=== PATIENT | female | born 1985 | race Two or more races ===

== ENCOUNTER → 2017-09-16 | Outpatient (CLI) | payer BC ==
[2017-09-16 13:09] LABS: CH 28.4; CHCM 33.9; HCT 38.8 % (34.0-46.0); HDW 2.41; HGB 13.1 gm/dL (11.4-16.0); MCH 28.5 pg (25.0-35.0); MCHC 33.9 g/dL (31.0-37.0); MCV 84.1 fL (80.0-100.0); Mean Platelet Volume 7.7; RBC 4.61 m/uL (3.80-5.40); RDW 13.7 % (11.5-15.5)
[2017-09-16 13:30] LABS: Glucose 92 mg/dL (74-99); Non-African American GFR(MDRD) >60 (>60 ml/min/1.73 sqM)
--- NOTE | 2017-09-16 14:03 | US ---
EXAMINATION TYPE: US OB <= 14 wk fetus DATE OF EXAM: 09/16/2017 COMPARISON: NONE CLINICAL HISTORY: Z36 CONFIRM DATES. Confirm Dates. Positive beta-hCG test. EXAM PERFORMED: Transabdominal (TA) EXAM MEASUREMENTS: GESTATIONAL AGE / DATING Physician Established: (9 weeks/3 days) EDC: 04/18/2018 Dates by LMP: (9 weeks/3 days) EDC: 04/18/2018 Dates by First Scan: No prior Dates by Current Scan for: (9 weeks/3 days) EDC: 04/18/2018 MATERNAL ANATOMY Uterus: 12.6 x 6.9 x 8.9 cm Right Ovary: 2.3 x 2.0 x 2.1 cm Left Ovary: 3.0 x 1.9 x 3.1 Post CDS / Adnexa: wnl Presence of free fluid: No Presence of corpus luteal cyst: Left Ovary= 2.0 x 1.8 x 1.8 cm Presence of subchorionic bleed: Right= 2.4 x 0.9 x 1.5 cm, Left= 2.4 x 1.0 x 1.0 cm GESTATION / SURVEY CRL: 2.6 cm (9 weeks/3 days) MSD: wnl Yolk Sac (normal less than 6mm): 4mm Heart Rate: 168 bpm Rhythm: Normal IUP: Viable IUP Date of LMP: 07/12/2017 Single, viable IUP/ Small sub-chorionic bleeds, otherwise no other abnormality seen Single live intrauterine gestation is confirmed as gestational sac, yolk sac, and pole are iden tified. No free fluid is seen in pelvic cul-de-sac. Along right aspect of gestational sac superiorly there is 2.4 x 0.9 x 1.5 cm small curvilinear fluid collection or subchorionic hemorrhage. There is s lightly larger 2.4 x 1.0 x 1.0 cm oval fluid collection or small to moderate-sized subchorionic hemor rhage along left inferior aspect towards end of study marked by technologist. Both ovaries are present. No suspicious extraovarian adnexal masses are seen. Within left ovary there is 2.0 cm hypervascular hypoechoic lesion felt to reflect corpus luteal cyst. IMPRESSION: Single live intrauterine gestation is confirmed, mean crown-rump length is 2.6 cm corresponding to 9 week 3 day old fetus.
[2017-09-16 19:20] LABS: Treponemal Ab Non-Reactive (Non-Reactive)
== END | disposition home or self-care (01) ==
LOC: RADUSWWP 12:23
PROVIDERS: ATTEND Obstetrics & Gynecology
DX: Z34.01 Encounter for supervision of normal first pregnancy, first trimester (principal); Z3A.09 9 weeks gestation of pregnancy
CPT/HCPCS: 36415; 76801; 82565; 82947; 85027; 86762; 86780; 86850; 86900; 86901; 87340

== ENCOUNTER 2018-04-12 13:03 | Inpatient (IN) | payer BC ==
[2018-04-12] MEDS ORDERED: OXYTOCIN 10 UNIT/ML 1 ML VIAL IM PRN (13:20)
[2018-04-12] MEDS ORDERED: METHYLERGONOVINE 0.2 MG/ML 1 ML AMP IM PRN (13:20)
[2018-04-12] MEDS ORDERED: TERBUTALINE 1 MG/ML VIAL SQ PRN (13:20)
[2018-04-12] MEDS ORDERED: LIDOCAINE 1% (PF) 10 MG/ML (30 ML SDV) SQ PRN (13:20)
[2018-04-12] MEDS ORDERED: CARBOPROST TROMETHAMINE 250 MCG/ML 1 ML AMP IM PRN (13:20)
[2018-04-12] MEDS ORDERED: OXYTOCIN 20 UNITS/1000 ML NS 1,000 ML IV SCH ×3 (13:30→23:00)
[2018-04-12] MEDS: LACTATED RINGERS 1,000 ML IV SCH ×2 (13:49→21:05)
[2018-04-12 14:06] LABS: Basophils % (A) 0 %; Eosinophils % (A) 0 %; HCT 39.2 % (34.0-46.0); HGB 13.4 gm/dL (11.4-16.0); Lymphocytes % (A) 19 %; MCH 29.4 pg (25.0-35.0); MCV 86.3 fL (80.0-100.0); Mean Platelet Volume 9.5; Monocytes # (A) 0.5 k/uL (0-1.0); Monocytes % (A) 4 %; Neutrophils # (A) 7.9 k/uL (1.3-7.7); Neutrophils % (A) 74 %; Platelet Count 205 k/uL (150-450); RBC 4.55 m/uL (3.80-5.40); RDW 13.7 % (11.5-15.5); WBC 10.6 k/uL (3.8-10.6)
[2018-04-12 14:45] VITALS: BMI 28.7
[2018-04-12] MEDS ORDERED: BUTORPHANOL 1 MG/ML 1 ML VIAL IV PRN (16:00)
--- NOTE | 2018-04-12 17:14 | P.HPOB ---
History of Present Illness H&P Date: 04/12/18 Chief Complaint: Leaking of fluid This patient is a pleasant 32-year-old 1 para 0 female estimated date of confinement 04/18/2018 estimated gestational age 39 and one sevenths weeks who presents to labor and delivery with complaints of leaking of fluid since 11: 00 this morning. Patient's care has been uncomplicated. Review of Systems Gastrointestinal: Reports heartburn Genitourinary: Reports Menstruation: Reports amenorrhea Past Medical History Past Medical History: No Reported History Additional Past Medical History / Comment(s): She had excision of a benign lip lesion. History of Any Multi-Drug Resistant Organisms: None Reported Past Surgical History: No Surgical Hx Reported Past Anesthesia/Blood Transfusion Reactions: No Reported Reaction Past Psychological History: No Psychological Hx Reported Smoking Status: Never smoker Past Alcohol Use History: None Reported Past Drug Use History: None Reported - Past Family History Father Family Medical History: No Reported History Medications and Allergies Home Medications Medication Instructions Recorded Confirmed Type Pnv,Calcium 72/Iron/Folic Acid 1 tab PO DAILY 04/12/18 04/12/18 History [ Plus Tablet] Allergies Allergy/AdvReac Type Severity Reaction Status Date / Time No Known Allergies Allergy Verified 04/12/18 13:19 Exam - Vital Signs Vital signs: Vital Signs Temp Pulse Resp BP Pulse Ox 04/12/18 13:22 97.4 F L 76 16 126/77 97 Intake and Output 04/12/18 04/12/18 04/12/18 06:59 14:59 22:59 Other: # Voids 1 Weight 80.739 kg - OBG Physical Exam Abdomen: bowel sounds normal, no diffuse tenderness, no bruit present, no guarding noted, no hepatomegaly, no splenomegaly, no mass Vulva: both: normal Vagina: normal moisture, no discharge Cervix: Cervix is 3-4 cm dilated 80% effaced and -1 station. Gross rupture membranes. Uterus: enlarged (Fundal height is 37 cm.) Results blood work shows she is A positive, rubella immune, RPR nonreactive, hepatitis B negative, group B strep was negative, Glucola was normal, ultrasounds have been normal. Result Diagrams: 04/12/18 13:50 Abnormal Lab Results - Last 24 Hours (Table) 04/12/18 Range/Units 13:50 Neutrophils # 7.9 H (1.3-7.7) k/uL Assessment and Plan Assessment: This is a pleasant 32-year-old 1 para 0 female estimated gestational age 39 and one sevenths weeks gestation who is admitted to labor and delivery with spontaneous rupture membranes. Patient's having rare contractions therefore plan is augmentation with Pitocin and anticipate vaginal delivery. (1) Third trimester Current Visit: Yes Status: Acute Code(s): Z34.93 - ENCNTR FOR SUPRVSN OF NORMAL PREG, UNSP, THIRD TRIMESTER SNOMED Code(s): 15043676 (2) Spontaneous rupture of amniotic membranes Current Visit: Yes Status: Acute Code(s): XNM5796 - SNOMED Code(s): 041130629
[2018-04-12] MEDS ORDERED: diphenhydrAMINE 25 MG CAP PO PRN ×2 (22:47→22:51)
[2018-04-12] MEDS ORDERED: ZOLPIDEM 5 MG TAB PO PRN ×2 (22:47→22:51)
[2018-04-12] MEDS ORDERED: HYDROCORTISONE 2.5% RECTAL CREAM 30 GM TUBE RECTAL PRN ×2 (22:47→22:51)
[2018-04-12] MEDS ORDERED: diphenhydrAMINE 50 MG CAP PO PRN (22:47)
[2018-04-12] MEDS ORDERED: diphenhydrAMINE 50 MG/ML 1 ML VIAL IVP PRN ×3 (22:47→22:51)
[2018-04-12] MEDS ORDERED: SIMETHICONE 80 MG CHEWABLE PO PRN ×2 (22:47→22:51)
[2018-04-12] MEDS ORDERED: LANOLIN CREAM 5 GM TUBE TOPICAL PRN ×2 (22:47→22:51)
[2018-04-12] MEDS ORDERED: ACETAMINOPHEN TAB 325 MG TAB PO PRN (22:47)
[2018-04-12] MEDS ORDERED: BENZOCAINE/MENTHOL SPRAY 1 GM/SPRAY AEROSOL TOPICAL PRN ×2 (22:47→22:51)
[2018-04-12] MEDS ORDERED: WITCH HAZEL 1 EACH MED..PAD TOPICAL PRN ×2 (22:47→22:51)
[2018-04-12] MEDS ORDERED: IBUPROFEN 600 MG TAB PO PRN (22:47)
[2018-04-12] MEDS ORDERED: BISACODYL 10 MG SUPP RECTAL PRN (22:51)
--- NOTE | 2018-04-12 22:52 | P.PROBDLV ---
Vaginal Delivery Note - . Vaginal Delivery Note: 32-year-old presented at 39 weeks and 1 day with spontaneous rupture membranes at 11 AM. Her cervix was 1 cm dilated, 80% effaced, and -1 station. She is not lizzie. heart tones 130-135 with moderate variability and reactive. Pitocin augmentation was started. Soon started lizzie every 2-3 minutes. When she was very uncomfortable and 6 cm dilated she did get one dose of Stadol. Soon thereafter she was completely dilated at 2109. She pushed, and delivered a viable female over intact perineum at 2213. Head delivered OA, nuchal cord 1 easily reduced, and anterior shoulder which was the right shoulder delivered gentle downward guidance followed by posterior shoulder and rest of body. Nose and mouth bulb suctioned, cord clamped and cut , infant placed on mother's abdomen. Apgars 9, 9, weight 7 lbs. 2 oz. Placenta delivered spontaneously, intact with three-vessel cord at 2215. Vagina , cervix, and perineum were inspected. A right sulcal laceration and a second- degree perineal laceration were repaired with 2-0 and 3-0 Vicryl. Estimated blood loss 300 mL. Mother and baby in stable condition.
[2018-04-12] MEDS: SENNOSIDES-DOCUSATE SODIUM 1 EACH TAB PO SCH (23:54)
[2018-04-12] MEDS: IBUPROFEN 600 MG TAB PO PRN (23:54)
--- NOTE | 2018-04-13 06:16 | P.PNOBGVD ---
Subjective - Subjective Patient reports: Reports appetite normal, Reports voiding normally, Reports pain well controlled, Reports ambulating normally : doing well Objective - Latest Vital Signs Latest vital signs: Vital Signs Temp Pulse Resp BP Pulse Ox 04/13/18 04:30 98.8 F 102 H 16 111/70 98 04/13/18 00:30 98 F 100 16 99/57 97 04/13/18 00:13 102 H 100/57 04/13/18 00:02 121 H 91/50 04/13/18 00:00 121 H 16 89/58 04/12/18 23:30 115 H 16 106/67 04/12/18 23:15 122 H 16 106/52 04/12/18 23:00 114 H 16 111/68 04/12/18 22:45 104 H 16 109/68 04/12/18 22:30 97.8 F 100 16 112/67 04/12/18 13:22 97.4 F L 76 16 126/77 97 Intake and Output 04/12/18 04/12/18 04/13/18 14:59 22:59 06:59 Intake Total 1000 1200 Output Total 300 Balance 700 1200 Intake: Intake, IV Titration 1000 1200 Amount Lactated Ringers 1,000 ml 1000 1000 @ 125 mls/hr IV .Q8H JORGE Rx#:[id number] Oxytocin 20 Units/1000 ml 200 Ns 1,000 ml @ Per Protocol IV .Q0M JORGE Rx#: [id number] Output: Estimated Blood Loss 300 Other: # Voids 1 1 Weight 80.739 kg - Exam Lungs: bilateral: normal Chest: Normal S1, Normal S2 Extremities: Present: normal Abdomen: Present: normal appearance, soft Uterus: Present: normal, firm - Labs Labs: Abnormal Lab Results - Last 24 Hours (Table) 04/12/18 Range/Units 13:50 Neutrophils # 7.9 H (1.3-7.7) k/uL Assessment and Plan Assessment: Post day #1. Resting without complaints. Vital signs are stable she is afebrile. She did have some bleeding after delivery and therefore I am going to check a CBC today. Currently she is bleeding significantly her uterus is firm. Vital signs are stable she is some mild tachycardia. Plan today is to continue routine care. (1) Third trimester Current Visit: Yes Status: Acute Code(s): Z34.93 - ENCNTR FOR SUPRVSN OF NORMAL PREG, UNSP, THIRD TRIMESTER SNOMED Code(s): 44648559 (2) Spontaneous rupture of amniotic membranes Current Visit: Yes Status: Acute Code(s): KNF2842 - SNOMED Code(s): 757458787
[2018-04-13 06:42] LABS: Basophils % (A) 0 %; Eosinophils % (A) 0 %; HCT 27.3 % (34.0-46.0); Lymphocytes # (A) 1.3 k/uL (1.0-4.8); Lymphocytes % (A) 7 %; MCH 28.7 pg (25.0-35.0); MCHC 32.8 g/dL (31.0-37.0); MCV 87.3 fL (80.0-100.0); Mean Platelet Volume 11.4; Monocytes # (A) 0.6 k/uL (0-1.0); Monocytes % (A) 3 %; Neutrophils # (A) 17.1 k/uL (1.3-7.7); Neutrophils % (A) 89 %; Platelet Count 200 k/uL (150-450); RBC 3.13 m/uL (3.80-5.40); RDW 13.8 % (11.5-15.5); WBC 19.2 k/uL (3.8-10.6)
[2018-04-13] MEDS ORDERED: SENNOSIDES-DOCUSATE SODIUM 1 EACH TAB PO SCH (08:00)
[2018-04-13] MEDS: SENNOSIDES-DOCUSATE SODIUM 1 EACH TAB PO SCH ×2 (08:09→20:52)
[2018-04-13] MEDS: ACETAMINOPHEN TAB 325 MG TAB PO PRN ×2 (08:09→18:20)
[2018-04-13] MEDS ORDERED: IRON AG/C/B12/CA/SUC.ACID/STOM 1 EACH TAB PO SCH (12:00)
[2018-04-13] MEDS: IBUPROFEN 600 MG TAB PO PRN (13:41)
[2018-04-14] MEDS: IBUPROFEN 600 MG TAB PO PRN (00:04)
[2018-04-14 01:07] VITALS: BP 119/72; PULSE 91; RESP 16; TEMP 98.4
[2018-04-14] MEDS: SENNOSIDES-DOCUSATE SODIUM 1 EACH TAB PO SCH (11:05)
--- NOTE | 2018-04-14 12:32 | P.PNOBGVD ---
Subjective - Subjective Patient reports: Reports appetite normal, Reports voiding normally, Reports pain well controlled, Reports ambulating normally : doing well Objective - Latest Vital Signs Latest vital signs: Vital Signs Temp Pulse Resp BP Pulse Ox 04/13/18 23:45 98.4 F 91 16 119/72 04/13/18 16:00 98.2 F 86 17 110/70 98 Intake and Output 04/13/18 04/14/18 04/14/18 22:59 06:59 14:59 Other: # Voids 2 1 - Exam Lungs: bilateral: normal Chest: Normal S1, Normal S2 Extremities: Present: normal Abdomen: Present: normal appearance, soft Uterus: Present: normal, firm Assessment and Plan Assessment: day #2. Patient is resting without complaints and wishes to go home. Vital signs are stable and she is afebrile. Uterus is firm nontender and she is having normal lochia. Hemoglobin yesterday was 9.0. My impression this is a normal post course. Plan is to continue routine care and discharge home today later (1) Third trimester Status: Acute Code(s): Z34.93 - ENCNTR FOR SUPRVSN OF NORMAL PREG, UNSP, THIRD TRIMESTER SNOMED Code(s): 38716285 (2) Spontaneous rupture of amniotic membranes Status: Acute Code(s): VBN5526 - SNOMED Code(s): 663018761
--- NOTE | 2018-04-14 12:35 | P.DS ---
Providers Date of admission: 04/12/18 13:22 Expected date of discharge: 04/14/18 Attending physician: José Luis Carter - Discharge Diagnosis(es) (1) Third trimester Status: Acute (2) Spontaneous rupture of amniotic membranes Status: Acute Hospital Course: Please see dictated H&P for intimate details of this patient's admission. Brief summary this is a pleasant 32-year-old 1 para 0 female who is admitted to labor and delivery with spontaneous rupture membranes. Patient goes on to have a vaginal delivery of viable female infant. Please see dictated delivery note per Dr. Gaspar. Patient does have some bleeding at the time of delivery however this subsided and day #1 hemoglobin was 9.0. Patient continued to do well and on #2 was felt be stable for discharge home follow up with me in 6 weeks. Procedures: normal vaginal delivery. Patient Condition at Discharge: Good Plan - Discharge Summary New Discharge Prescriptions: No Action Pnv,Calcium 72/Iron/Folic Acid [ Plus Tablet] 1 tab PO DAILY Discharge Medication List Pnv,Calcium 72/Iron/Folic Acid [ Plus Tablet] 1 tab PO DAILY 04/12/18 [ History] Follow up Appointment(s)/Referral(s): José Luis Carter MD [STAFF PHYSICIAN] - 6 Weeks Patient Instructions/Handouts: Vaginal Delivery (DC) Activity/Diet/Wound Care/Special Instructions: No intercourse or anything per vagina for 6 weeks. Please call if any fever, chills, excessive vaginal bleeding, and/or abdominal pain. Discharge Disposition: HOME SELF-CARE
== END 2018-04-14 10:45 | disposition home or self-care (01) | DRG 775 ==
LOC: FBPOP 13:03 → 4FBP 13:22
PROVIDERS: ADMIT Obstetrics & Gynecology; ATTEND Obstetrics & Gynecology
PROC: 10E0XZZ Delivery of Products of Conception, External Approach (ICD-10-PCS; principal; 2018-04-12)
PROC: 0KQM0ZZ Repair Perineum Muscle, Open Approach (ICD-10-PCS; 2018-04-12)
DX: O69.81X0 Labor and delivery complicated by cord around neck, without compression, not applicable or unspecified (principal); O70.1 Second degree perineal laceration during delivery; Z37.0 Single live birth; Z3A.39 39 weeks gestation of pregnancy; Z79.899 Other long term (current) drug therapy; Z87.2 Personal history of diseases of the skin and subcutaneous tissue
CPT/HCPCS: 59025; 84112; 85025; 99213

== ENCOUNTER 2020-06-22 14:23 | Emergency (ER) | payer BC ==
[2020-06-22 14:29] VITALS: TEMP 98
[2020-06-22] MEDS ORDERED: ACETAMINOPHEN TAB 325 MG TAB PO STA (14:35)
[2020-06-22] MEDS ORDERED: SODIUM CHLORIDE 0.9% 500 ML 500 ML IV ONE (14:35)
--- NOTE | 2020-06-22 14:38 | ED ---
General Adult HPI - General Chief complaint: Abdominal Pain Stated complaint: 12 Wks - Miscarriage Time Seen by Provider: 06/22/20 14:31 Source: patient, RN notes reviewed, old records reviewed Mode of arrival: ambulatory Limitations: no limitations - History of Present Illness Initial comments: 34-year-old female patient who is approximately 12 weeks gestation presents to ED for chief complaint of abdominal cramping vaginal bleeding. Patient states that she had spotting early this morning and now the bleeding is heavier and she has passed some clots and reported tissue. Patient is a who had 1 prior with a live and no complications. she states that about 3 weeks ago she had a outpatient ultrasound by her [facility] which did display a viable intrauterine . She denies any other acute complaints. Systemic: Pt denies fatigue, fever/chills, rash. Pt denies weakness, night sweats, weight loss. Neuro: Pt denies headache, visual disturbances, syncope or pre-syncope. HEENT: Pt denies ocular discharge or irritation, otalgia, rhinorrhea, pharyngitis or notable lymphadenopathy. Cardiopulmonary: Pt denies chest pain, SOB, heart palpitations, dyspnea on exertion. Abdominal/GI: Pt denies n/v/d. : Pt denies dysuria, burning w/ urination, frequency/urgency. Denies new onset urinary or bowel incontinence. MSK: Pt denies myalgia, loss of strength or function in extremities. Neuro: Pt denies new onset weakness, paresthesias. - Related Data Home Medications Medication Instructions Recorded Confirmed Pnv,Calcium 72/Iron/Folic Acid 1 tab PO DAILY 04/12/18 06/22/20 [ Plus Tablet] Allergies Allergy/AdvReac Type Severity Reaction Status Date / Time No Known Allergies Allergy Verified 06/22/20 14:29 Review of Systems ROS Statement: Those systems with pertinent positive or pertinent negative responses have been documented in the HPI. ROS Other: All systems not noted in ROS Statement are negative. Past Medical History Past Medical History: No Reported History Additional Past Medical History / Comment(s): She had excision of a benign lip lesion. History of Any Multi-Drug Resistant Organisms: None Reported Past Surgical History: No Surgical Hx Reported Past Anesthesia/Blood Transfusion Reactions: No Reported Reaction Past Psychological History: No Psychological Hx Reported Smoking Status: Never smoker Past Alcohol Use History: None Reported Past Drug Use History: None Reported - Past Family History Father Family Medical History: No Reported History General Exam - General Exam Comments Initial Comments: Constitutional: NAD, AOX3, Pt has pleasant affect. HEENT: NC/AT, trachea midline, neck supple, no lymphadenopathy. External ears appear normal, without discharge. Mucous membranes moist. EOM intact. There is no scleral icterus. No pallor noted. Cardiopulmonary: RRR, no murmurs, rubs or gallops, no JVD noted. Lungs CTAB in anterior and posterior gooden. No peripheral edema. Abdominal exam: Abdomen soft and non-distended. Abdomen mildly tender mansfield prapubic region.. Bowel sounds active in LLQ. No hepatosplenomegaly. No ecchymosis Neuro: CN II-XII grossly intact. No nuchal rigidity. No raccon eyes, no mendiola sign, no hemotympanum. No cervical spinal tenderness. MSK: No posterior calf tenderness bilaterally. Extremities are warm and well perfused. Full active ROM in upper and lower extremities, 5/5 stregnth. Limitations: no limitations Course Vital Signs 06/22/20 06/22/20 14:27 15:35 Temperature 98.0 F Pulse Rate 91 68 Respiratory 20 16 Rate Blood Pressure 135/80 114/68 O2 Sat by Pulse 99 100 Oximetry Medical Decision Making - Medical Decision Making 34-year-old female patient comes to ED for vaginal bleeding. Patient is approximate 12 weeks gestation via ultrasound last menstrual period. Patient vital signs are stable, afebrile. Physical exam displayed a little bit of suprapubic tenderness. After investigations are unremarkable. Hemoglobin and platelets are stable. Patient is blood type A positive. Ultrasound displays a thickened endometrium without any intrauterine . Patient Clinical presentation is consistent with likely miscarriage. patient does report that she did have a prior ultrasound that did display a viable intrauterine a few weeks ago. Patient be discharged with repeat beta hCG and outpatient follow-up with her [facility]. Case discussed with Dr. Ibarra. - Lab Data Result diagrams: 06/22/20 14:35 06/22/20 14:35 Lab Results 06/22/20 06/22/20 06/22/20 Range/Units 14:35 14:35 14:35 WBC 9.8 (3.8-10.6) k/uL RBC 5.00 (3.80-5.40) m/uL Hgb 13.9 (11.4-16.0) gm/dL Hct 41.7 (34.0-46.0) % MCV 83.5 (80.0-100.0) fL MCH 27.8 (25.0-35.0) pg MCHC 33.3 (31.0-37.0) g/dL RDW 13.1 (11.5-15.5) % Plt Count 304 (150-450) k/uL Neutrophils % 67 % Lymphocytes % 26 % Monocytes % 4 % Eosinophils % 1 % Basophils % 0 % Neutrophils # 6.5 (1.3-7.7) k/uL Lymphocytes # 2.5 (1.0-4.8) k/uL Monocytes # 0.4 (0-1.0) k/uL Eosinophils # 0.1 (0-0.7) k/uL Basophils # 0.0 (0-0.2) k/uL Sodium 137 (137-145) mmol/L Potassium 4.0 (3.5-5.1) mmol/L Chloride 105 (98-107) mmol/L Carbon Dioxide 22 (22-30) mmol/L Anion Gap 10 mmol/L BUN 8 (7-17) mg/dL Creatinine 0.66 (0.52-1.04) mg/dL Est GFR (CKD-EPI)AfAm >90 (>60 ml/min/1.73 sqM) Est GFR (CKD-EPI)NonAf >90 (>60 ml/min/1.73 sqM) Glucose 110 H (74-99) mg/dL Calcium 9.7 (8.4-10.2) mg/dL Total Bilirubin 0.5 (0.2-1.3) mg/dL AST 24 (14-36) U/L ALT 11 (4-34) U/L Alkaline Phosphatase 43 (38-126) U/L Total Protein 7.2 (6.3-8.2) g/dL Albumin 4.5 (3.5-5.0) g/dL HCG, Quant 2744.0 mIU/mL Urine Color Urine Appearance (Clear) Urine pH (5.0-8.0) Ur Specific Mabel (1.001-1.035) Urine Protein (Negative) Urine Glucose (UA) (Negative) Urine Ketones (Negative) Urine Blood (Negative) Urine Nitrite (Negative) Urine Bilirubin (Negative) Urine Urobilinogen (<2.0) mg/dL Ur Leukocyte Esterase (Negative) Urine RBC (0-5) /hpf Urine WBC (0-5) /hpf Ur Squamous Epith Cells (0-4) /hpf Blood Type A Positive Blood Type Recheck A Pos Bld Type Recheck Status No 06/22/20 Range/Units 15:19 WBC (3.8-10.6) k/uL RBC (3.80-5.40) m/uL Hgb (11.4-16.0) gm/dL Hct (34.0-46.0) % MCV (80.0-100.0) fL MCH (25.0-35.0) pg MCHC (31.0-37.0) g/dL RDW (11.5-15.5) % Plt Count (150-450) k/uL Neutrophils % % Lymphocytes % % Monocytes % % Eosinophils % % Basophils % % Neutrophils # (1.3-7.7) k/uL Lymphocytes # (1.0-4.8) k/uL Monocytes # (0-1.0) k/uL Eosinophils # (0-0.7) k/uL Basophils # (0-0.2) k/uL Sodium (137-145) mmol/L Potassium (3.5-5.1) mmol/L Chloride (98-107) mmol/L Carbon Dioxide (22-30) mmol/L Anion Gap mmol/L BUN (7-17) mg/dL Creatinine (0.52-1.04) mg/dL Est GFR (CKD-EPI)AfAm (>60 ml/min/1.73 sqM) Est GFR (CKD-EPI)NonAf (>60 ml/min/1.73 sqM) Glucose (74-99) mg/dL Calcium (8.4-10.2) mg/dL Total Bilirubin (0.2-1.3) mg/dL AST (14-36) U/L ALT (4-34) U/L Alkaline Phosphatase (38-126) U/L Total Protein (6.3-8.2) g/dL Albumin (3.5-5.0) g/dL HCG, Quant mIU/mL Urine Color Light Yellow Urine Appearance Clear (Clear) Urine pH 7.5 (5.0-8.0) Ur Specific Mabel 1.005 (1.001-1.035) Urine Protein Negative (Negative) Urine Glucose (UA) Negative (Negative) Urine Ketones Negative (Negative) Urine Blood Small H (Negative) Urine Nitrite Negative (Negative) Urine Bilirubin Negative (Negative) Urine Urobilinogen <2.0 (<2.0) mg/dL Ur Leukocyte Esterase Negative (Negative) Urine RBC 38 H (0-5) /hpf Urine WBC 1 (0-5) /hpf Ur Squamous Epith Cells <1 (0-4) /hpf Blood Type Blood Type Recheck Bld Type Recheck Status Disposition Clinical Impression: Miscarriage Disposition: HOME SELF-CARE Condition: Stable Instructions (If sedation given, give patient instructions): Miscarriage (ED) Additional Instructions: follow-up with [facility] tomorrow. Follow up with PCP in 1-2 days. Have repeat blood draw in a few days. Return to ER if any worsening symptoms or any worsening bleeding. Is patient prescribed a controlled substance at d/c from ED?: No Referrals: Nonstaff,Physician [REFERRING] - 1-2 days
[2020-06-22 14:59] LABS: Basophils % (A) 0 %; Eosinophils # (A) 0.1 k/uL (0-0.7); Eosinophils % (A) 1 %; HCT 41.7 % (34.0-46.0); HGB 13.9 gm/dL (11.4-16.0); Lymphocytes # (A) 2.5 k/uL (1.0-4.8); Lymphocytes % (A) 26 %; MCH 27.8 pg (25.0-35.0); MCHC 33.3 g/dL (31.0-37.0); MCV 83.5 fL (80.0-100.0); Mean Platelet Volume 7.6; Monocytes # (A) 0.4 k/uL (0-1.0); Monocytes % (A) 4 %; Neutrophils # (A) 6.5 k/uL (1.3-7.7); Neutrophils % (A) 67 %; Platelet Count 304 k/uL (150-450); RDW 13.1 % (11.5-15.5); WBC 9.8 k/uL (3.8-10.6)
[2020-06-22 15:08] LABS: ALT 11 U/L (4-34); AST 24 U/L (14-36); African American GFR (CKD) >90 (>60 ml/min/1.73 sqM); Albumin 4.5 g/dL (3.5-5.0); Alkaline Phosphatase 43 U/L (38-126); Anion Gap 10 mmol/L; Blood Urea Nitrogen 8 mg/dL (7-17); Calcium 9.7 mg/dL (8.4-10.2); Carbon Dioxide 22 mmol/L (22-30); Chloride 105 mmol/L (98-107); Glucose 110 mg/dL (74-99); Non-African American GFR(CKD) >90 (>60 ml/min/1.73 sqM); Sodium 137 mmol/L (137-145); Total Bilirubin 0.5 mg/dL (0.2-1.3); Total Protein 7.2 g/dL (6.3-8.2)
--- NOTE | 2020-06-22 15:34 | US ---
EXAMINATION TYPE: Ultrasound OB <= 14 week fetus DATE OF EXAM: 06/22/2020 3:14 PM COMPARISON: NONE CLINICAL HISTORY: 34-year-old female pain. Heavy vaginal bleeding starting today, cramping. patient h ad an ultrasound done at another facility and saw a viable IUP at that time. EXAM PERFORMED: Transabdominal (TA). Transvaginal exam not performed due to patient's heavy bleeding FINDINGS: EXAM MEASUREMENTS: GESTATIONAL AGE / DATING Physician Established: (12 weeks/5 days) EDC: 12/30/2020 Dates by LMP: (12 weeks/5 days) EDC: 12/30/2020 Dates by Current Scan for: No IUP visualized on this exam MATERNAL ANATOMY Uterus: 13.5 x 6.5 x 5.8 cm Right Ovary: 2.1 x 1.3 x 2.3 cm Left Ovary: 3.0 x 1.4 x 2.6 c m Post CDS / Adnexa: wnl Presence of free fluid: No Presence of corpus luteal cyst: No Presence of subchorionic bleed: No GESTATION / SURVEY IUP: No IUP seen Date of LMP: 03/25/2020 Beta HcG (if available): Not available at this time No viable IUP visualized. Thickened, complex endometrium measuring up to 3.3 cm thick. IMPRESSION: No visualized intrauterine . The endometrium is very heterogeneous and markedly thickened up to 3.3 cm. Differential considerations include failed and nonvisualized ectopic . Given the extensive endometrial thickening, too early to visualize intrauterine considered less likely. As the patient's outside prior not available for review, gestational trophoblastic dise ase would be an additional differential consideration. Follow-up serial beta hCG and ultrasound as in dicated.
[2020-06-22 15:56] LABS: Appearance,Urine Clear (Clear); Bilirubin,Urine Negative (Negative); Blood,Urine Small (Negative); Color,Urine Light Yellow; Glucose,Urine (UA) Negative (Negative); Ketones,Urine Negative (Negative); Leukocyte Esterase,Urine Negative (Negative); Nitrite,Urine Negative (Negative); PH, Urine 7.5 (5.0-8.0); Protein,Urine Negative (Negative); RBC,Urine 38 /hpf (0-5); Specific Gravity,Urine 1.005 (1.001-1.035); Squamous Epithelial Cell,Urine <1 /hpf (0-4); Urobilinogen,Urine <2.0 mg/dL (<2.0); WBC,Urine 1 /hpf (0-5)
[2020-06-22 16:56] VITALS: BP 135/80; PULSE 80; RESP 18
== END 2020-06-22 17:16 | disposition home or self-care (01) ==
LOC: EC 14:23
DX: O03.9 Complete or unspecified spontaneous abortion without complication (principal); R93.89 Abnormal findings on diagnostic imaging of other specified body structures; Z67.10 Type A blood, Rh positive
CPT/HCPCS: 36415; 76801; 80053; 81001; 84702; 85025; 86900; 86901; 96360; 99284

== ENCOUNTER → 2020-11-02 | Outpatient (CLI) | payer BC ==
--- NOTE | 2020-11-02 13:08 | XR ---
EXAMINATION TYPE: XR thoracic spine complete DATE OF EXAM: 11/02/2020 CLINICAL HISTORY: Chronic mid back pain TECHNIQUE: Frontal, lateral, and swimmer's view of thoracic spine are obtained. COMPARISON: None. FINDINGS: Thoracic spine show satisfactory alignment without evidence of acute fracture or dislocatio n. Vertebral body heights and disc space heights are preserved. Visualized ribs are intact bilateral ly. IMPRESSION: Unremarkable study.
--- NOTE | 2020-11-02 13:26 | XR ---
EXAMINATION TYPE: XR lumbar spine 2 or 3V DATE OF EXAM: 11/02/2020 Comparison: None Clinical History: 34-year-old female Z00.00 M54.41 M54.42 M54.6 Findings: 5 lumbar type vertebral bodies. Mild degenerative change at L5-S1 with disc space narrowing and some endplate sclerosis. Vertebral body heights are preserved. Straightening of the normal lumbar lordosis . Preserved alignment. Impression: Mild degenerative disc disease L5-S1. No vertebral compression collapse or malalignment.
== END | disposition home or self-care (01) ==
LOC: RADXRMAIN 12:42
PROVIDERS: ATTEND Nurse Practitioner Family
DX: M51.37 Other intervertebral disc degeneration, lumbosacral region (principal); Z00.00 Encounter for general adult medical examination without abnormal findings
CPT/HCPCS: 72072; 72100

== ENCOUNTER 2020-11-05 11:17 | Emergency (ER) | payer BC ==
[2020-11-05 11:31] VITALS: TEMP 98.6
[2020-11-05] MEDS ORDERED: SODIUM CHLORIDE 0.9% 500 ML 500 ML IV STA (11:45)
[2020-11-05] MEDS ORDERED: PANTOPRAZOLE 40 MG/10 ML VIAL IVP STA (11:45)
[2020-11-05] MEDS ORDERED: SODIUM CHLORIDE 0.9% 1,000 ML IV STA (11:45)
[2020-11-05 12:10] LABS: Basophils # (A) 0.1 k/uL (0-0.2); Basophils % (A) 1 %; Eosinophils # (A) 0.1 k/uL (0-0.7); Eosinophils % (A) 1 %; HGB 15.2 gm/dL (11.4-16.0); Lymphocytes % (A) 21 %; MCH 27.9 pg (25.0-35.0); MCHC 33.7 g/dL (31.0-37.0); MCV 82.6 fL (80.0-100.0); Mean Platelet Volume 7.3; Monocytes # (A) 0.5 k/uL (0-1.0); Monocytes % (A) 5 %; Neutrophils # (A) 6.8 k/uL (1.3-7.7); Neutrophils % (A) 72 %; Platelet Count 330 k/uL (150-450); RBC 5.45 m/uL (3.80-5.40); RDW 12.7 % (11.5-15.5); WBC 9.4 k/uL (3.8-10.6)
[2020-11-05 12:17] LABS: Appearance,Urine Clear (Clear); Bilirubin,Urine Negative (Negative); Blood,Urine Negative (Negative); Color,Urine Yellow; Glucose,Urine (UA) Negative (Negative); Ketones,Urine 1+ (Negative); Leukocyte Esterase,Urine Negative (Negative); Nitrite,Urine Negative (Negative); PH, Urine 6.5 (5.0-8.0); Protein,Urine Negative (Negative); Urobilinogen,Urine <2.0 mg/dL (<2.0)
[2020-11-05 12:23] LABS: Sodium 138 mmol/L (137-145)
[2020-11-05 12:25] LABS: ALT 21 U/L (4-34); AST 27 U/L (14-36); African American GFR (CKD) >90 (>60 ml/min/1.73 sqM); Albumin 5.1 g/dL (3.5-5.0); Alkaline Phosphatase 46 U/L (38-126); Amylase 56 U/L (30-110); Anion Gap 10 mmol/L; Blood Urea Nitrogen 11 mg/dL (7-17); Calcium 9.8 mg/dL (8.4-10.2); Carbon Dioxide 26 mmol/L (22-30); Chloride 102 mmol/L (98-107); Glucose 96 mg/dL (74-99); Lipase 98 U/L (23-300); Non-African American GFR(CKD) 89 (>60 ml/min/1.73 sqM); Potassium 3.6 mmol/L (3.5-5.1); Total Bilirubin 0.8 mg/dL (0.2-1.3); Total Protein 8.6 g/dL (6.3-8.2)
--- NOTE | 2020-11-05 12:42 | ED ---
Abdominal Pain HPI - General Chief Complaint: Abdominal Pain Stated Complaint: Abd Pain, Dizziness Time Seen by Provider: 11/05/20 11:35 Source: patient, RN notes reviewed Mode of arrival: ambulatory Limitations: no limitations - History of Present Illness Initial Comments: This a 34-year-old female presents emergency Department chief complaint of nause a, left upper quadrant abdominal pain, dizziness. Patient states that she's been having this discomfort in her abdomen which has worsens sometimes with food. Patient states that she was also recent started on Effexor by her PCP complaints of severe anxiety. She states that she's felt off since starting this. She denies any current headache no blurred vision states she is feels little lightheaded. Patient had some diarrhea nothing significant no dysuria she states her urine was checked this morning and states that was not painful to urinate. No melena hematochezia no hematemesis or coffee-ground emesis - Related Data Home Medications Medication Instructions Recorded Confirmed Pnv,Calcium 72/Iron/Folic Acid 1 tab PO DAILY 04/12/18 11/05/20 [ Plus Tablet] Venlafaxine HCl [Effexor XR] 75 mg PO DAILY 11/05/20 11/05/20 Previous Rx's Medication Instructions Recorded Omeprazole [PriLOSEC] 40 mg PO DAILY #14 cap 11/05/20 Allergies Allergy/AdvReac Type Severity Reaction Status Date / Time No Known Allergies Allergy Verified 11/05/20 12:22 Review of Systems ROS Statement: Those systems with pertinent positive or pertinent negative responses have been documented in the HPI. ROS Other: All systems not noted in ROS Statement are negative. Past Medical History Past Medical History: No Reported History Additional Past Medical History / Comment(s): She had excision of a benign lip lesion. History of Any Multi-Drug Resistant Organisms: None Reported Past Surgical History: No Surgical Hx Reported Past Anesthesia/Blood Transfusion Reactions: No Reported Reaction Past Psychological History: Anxiety Smoking Status: Never smoker Past Alcohol Use History: None Reported Past Drug Use History: None Reported - Past Family History Father Family Medical History: No Reported History General Exam Limitations: no limitations General appearance: alert, in no apparent distress Head exam: Present: atraumatic, normocephalic, normal inspection Eye exam: Present: normal appearance, PERRL, EOMI. Absent: scleral icterus, conjunctival injection, periorbital swelling ENT exam: Present: normal exam, normal oropharynx, mucous membranes moist Neck exam: Present: normal inspection, full ROM. Absent: tenderness, meningismus, lymphadenopathy Respiratory exam: Present: normal lung sounds bilaterally. Absent: respiratory distress, wheezes, rales, rhonchi, stridor Cardiovascular Exam: Present: regular rate, normal rhythm, normal heart sounds. Absent: systolic murmur, diastolic murmur, rubs, gallop, clicks GI/Abdominal exam: Present: soft, tenderness (Mild epigastric upper quadrant), normal bowel sounds. Absent: distended, guarding, rebound, rigid Course Vital Signs 11/05/20 11/05/20 11/05/20 11:30 12:05 13:19 Temperature 98.6 F Pulse Rate 85 73 81 Respiratory 18 18 16 Rate Blood Pressure 130/84 137/85 117/73 O2 Sat by Pulse 98 99 99 Oximetry Medical Decision Making - Medical Decision Making Patient labs reviewed Patient may have underlying gastritis. Patient's has recently developed some lightheadedness after starting Effexor felt this may be medication induced though she does have mild signs of dehydration. Patient will increase fluid intake will be started on omeprazole and will follow-up with PCP discussed medication changes. - Lab Data Result diagrams: 11/05/20 12:01 11/05/20 12:01 Lab Results 11/05/20 11/05/20 11/05/20 Range/Units 12:01 12:01 12:01 WBC 9.4 (3.8-10.6) k/uL RBC 5.45 H (3.80-5.40) m/uL Hgb 15.2 (11.4-16.0) gm/dL Hct 45.0 (34.0-46.0) % MCV 82.6 (80.0-100.0) fL MCH 27.9 (25.0-35.0) pg MCHC 33.7 (31.0-37.0) g/dL RDW 12.7 (11.5-15.5) % Plt Count 330 (150-450) k/uL MPV 7.3 Neutrophils % 72 % Lymphocytes % 21 % Monocytes % 5 % Eosinophils % 1 % Basophils % 1 % Neutrophils # 6.8 (1.3-7.7) k/uL Lymphocytes # 2.0 (1.0-4.8) k/uL Monocytes # 0.5 (0-1.0) k/uL Eosinophils # 0.1 (0-0.7) k/uL Basophils # 0.1 (0-0.2) k/uL Sodium (137-145) mmol/L Potassium (3.5-5.1) mmol/L Chloride (98-107) mmol/L Carbon Dioxide (22-30) mmol/L Anion Gap mmol/L BUN (7-17) mg/dL Creatinine (0.52-1.04) mg/dL Est GFR (CKD-EPI)AfAm (>60 ml/min/1.73 sqM) Est GFR (CKD-EPI)NonAf (>60 ml/min/1.73 sqM) Glucose (74-99) mg/dL Plasma Lactic Acid Pee (0.7-2.0) mmol/L Calcium (8.4-10.2) mg/dL Total Bilirubin (0.2-1.3) mg/dL AST (14-36) U/L ALT (4-34) U/L Alkaline Phosphatase (38-126) U/L Total Protein (6.3-8.2) g/dL Albumin (3.5-5.0) g/dL Amylase (30-110) U/L Lipase (23-300) U/L Urine Color Yellow Urine Appearance Clear (Clear) Urine pH 6.5 (5.0-8.0) Ur Specific [place] 1.010 (1.001-1.035) Urine Protein Negative (Negative) Urine Glucose (UA) Negative (Negative) Urine Ketones 1+ H (Negative) Urine Blood Negative (Negative) Urine Nitrite Negative (Negative) Urine Bilirubin Negative (Negative) Urine Urobilinogen <2.0 (<2.0) mg/dL Ur Leukocyte Esterase Negative (Negative) Urine HCG, Qual (Not Detectd) Heterophile Antibody Negative (Negative) 11/05/20 11/05/20 11/05/20 Range/Units 12:01 12:01 12:01 WBC (3.8-10.6) k/uL RBC (3.80-5.40) m/uL Hgb (11.4-16.0) gm/dL Hct (34.0-46.0) % MCV (80.0-100.0) fL MCH (25.0-35.0) pg MCHC (31.0-37.0) g/dL RDW (11.5-15.5) % Plt Count (150-450) k/uL MPV Neutrophils % % Lymphocytes % % Monocytes % % Eosinophils % % Basophils % % Neutrophils # (1.3-7.7) k/uL Lymphocytes # (1.0-4.8) k/uL Monocytes # (0-1.0) k/uL Eosinophils # (0-0.7) k/uL Basophils # (0-0.2) k/uL Sodium 138 (137-145) mmol/L Potassium 3.6 (3.5-5.1) mmol/L Chloride 102 (98-107) mmol/L Carbon Dioxide 26 (22-30) mmol/L Anion Gap 10 mmol/L BUN 11 (7-17) mg/dL Creatinine 0.86 (0.52-1.04) mg/dL Est GFR (CKD-EPI)AfAm >90 (>60 ml/min/1.73 sqM) Est GFR (CKD-EPI)NonAf 89 (>60 ml/min/1.73 sqM) Glucose 96 (74-99) mg/dL Plasma Lactic Acid Pee 1.2 (0.7-2.0) mmol/L Calcium 9.8 (8.4-10.2) mg/dL Total Bilirubin 0.8 (0.2-1.3) mg/dL AST 27 (14-36) U/L ALT 21 (4-34) U/L Alkaline Phosphatase 46 (38-126) U/L Total Protein 8.6 H (6.3-8.2) g/dL Albumin 5.1 H (3.5-5.0) g/dL Amylase 56 (30-110) U/L Lipase 98 (23-300) U/L Urine Color Urine Appearance (Clear) Urine pH (5.0-8.0) Ur Specific [place] (1.001-1.035) Urine Protein (Negative) Urine Glucose (UA) (Negative) Urine Ketones (Negative) Urine Blood (Negative) Urine Nitrite (Negative) Urine Bilirubin (Negative) Urine Urobilinogen (<2.0) mg/dL Ur Leukocyte Esterase (Negative) Urine HCG, Qual Not Detected (Not Detectd) Heterophile Antibody (Negative) Disposition Clinical Impression: Gastritis, Dehydration, Lightheaded Disposition: HOME SELF-CARE Condition: Stable Instructions (If sedation given, give patient instructions): Gastritis (ED) Additional Instructions: Please return to the Emergency Department if symptoms worsen or any other concerns. Prescriptions: Omeprazole [PriLOSEC] 40 mg PO DAILY #14 cap Is patient prescribed a controlled substance at d/c from ED?: No Referrals: Polo Lopez MD [Primary Care Provider] - 1-2 days Time of Disposition: 13:22
[2020-11-05 13:20] VITALS: BP 117/73; PULSE 81; RESP 16
== END 2020-11-05 13:33 | disposition home or self-care (01) ==
LOC: EC 11:17
DX: K29.70 Gastritis, unspecified, without bleeding (principal); E86.0 Dehydration; R42 Dizziness and giddiness; F41.9 Anxiety disorder, unspecified; Z79.899 Other long term (current) drug therapy
CPT/HCPCS: 36415; 80053; 82150; 83605; 83690; 85025; 86308; 81003; 81025; 99284; 96374; 96361 ×2; C9113

== ENCOUNTER 2022-07-03 09:08 | Inpatient (IN) | payer BC ==
[2022-07-03] MEDS ORDERED: TERBUTALINE 1 MG/ML VIAL SQ PRN (09:47)
[2022-07-03] MEDS ORDERED: OXYTOCIN 10 UNIT/ML 1 ML VIAL IM PRN (09:47)
[2022-07-03] MEDS ORDERED: METHYLERGONOVINE 0.2 MG/ML 1 ML AMP IM PRN (09:47)
[2022-07-03] MEDS ORDERED: LIDOCAINE 0.5% (PF) 5 MG/ML (50 ML SDV) SQ PRN (09:47)
[2022-07-03] MEDS ORDERED: CARBOPROST TROMETHAMINE 250 MCG/ML 1 ML AMP IM PRN (09:47)
[2022-07-03] MEDS ORDERED: OXYTOCIN 30 UNITS/500 ML NS 30 UNIT in SALINE 1 500ML.BAG IV SCH ×2 (10:00→13:15)
[2022-07-03] MEDS ORDERED: LACTATED RINGERS 1,000 ML IV SCH (10:00)
[2022-07-03] MEDS ORDERED: BUTORPHANOL 1 MG/ML 1 ML VIAL IV PRN (10:18)
[2022-07-03 10:53] LABS: HCT 39.7 % (34.0-46.0); MCH 28.4 pg (25.0-35.0); MCHC 32.8 g/dL (31.0-37.0); MCV 86.5 fL (80.0-100.0); Mean Platelet Volume 11.7; RBC 4.59 m/uL (3.80-5.40); RDW 13.8 % (11.5-15.5); WBC 12.9 k/uL (3.8-10.6)
[2022-07-03 11:17] LABS: Large Platelets Present; Lymphocytes # (M) 1.42 k/uL (1.0-4.8); Monocytes # (M) 0.52 k/uL (0-1.0); Neutrophils # (M) 10.97 k/uL (1.3-7.7); Neutrophils % (M) 85 %; Nucleated Red Blood Cells 0 /100 WBC (0-0); Platelet Count 238 k/uL (150-450); Total Cells Counted 100
[2022-07-03] MEDS ORDERED: SODIUM CHLORIDE 0.9% 100 ML BAG ONE (12:40)
[2022-07-03] MEDS ORDERED: OXYTOCIN 30 UNITS/500 ML NS BAG IV ONE (12:40)
[2022-07-03] MEDS ORDERED: ceFAZolin 1,000 MG VIAL ONE (12:40)
[2022-07-03] MEDS ORDERED: PROPOFOL 10 MG/ML 20 ML VIAL IV ONE (12:40)
[2022-07-03] MEDS ORDERED: fentaNYL (PF) 50 MCG/ML 2 ML AMP ONE (12:40)
[2022-07-03] MEDS ORDERED: ONDANSETRON 4 MG/2 ML VIAL ONE (12:40)
[2022-07-03] MEDS ORDERED: KETOROLAC 15 MG/ML 1 ML VIAL ONE (12:40)
[2022-07-03] MEDS ORDERED: SUCCINYLCHOLINE CHLORIDE 200 MG/10 ML VIAL IV ONE (12:40)
[2022-07-03] MEDS ORDERED: SIMETHICONE 80 MG CHEWABLE PO PRN (13:15)
[2022-07-03] MEDS ORDERED: ONDANSETRON 4 MG/2 ML VIAL IVP PRN (13:15)
[2022-07-03] MEDS ORDERED: NALOXONE 0.4 MG/ML 1 ML VIAL IV PRN (13:15)
[2022-07-03] MEDS ORDERED: diphenhydrAMINE 25 MG CAP PO PRN (13:15)
[2022-07-03] MEDS ORDERED: diphenhydrAMINE 50 MG/ML 1 ML VIAL IVP PRN (13:15)
[2022-07-03] MEDS ORDERED: LANOLIN CREAM 5 GM TUBE TOPICAL PRN (13:15)
[2022-07-03] MEDS ORDERED: ZOLPIDEM 5 MG TAB PO PRN (13:15)
[2022-07-03] MEDS ORDERED: METOCLOPRAMIDE 5 MG/ML 2 ML VIAL IVP PRN (13:15)
--- NOTE | 2022-07-03 13:40 | XR ---
EXAMINATION TYPE: XR abdomen 1V DATE OF EXAM: 07/03/2022 1:18 PM CLINICAL HISTORY: Emergency , rule out foreign body TECHNIQUE: Single portable supine KUB image of the abdomen is obtained. COMPARISON: Lumbar spine x-ray November 02, 2020. FINDINGS: Horizontal skin mamadou overlie the lower pelvis correlating with recent . Gas prominent bowel loops in the upper to mid abdomen. There is visualization of curvilinear density in the right upper to mid abdomen felt to reflect prominent gas-filled bowel loop with visualization of the bowel wall or Rigler's sign due to recent intra-abdominal operation or . No suspiciou s radiodense foreign body or sponge identified. Lung bases and the entire upper abdomen not included. Visualized osseous structures are intact. IMPRESSION: As above.
[2022-07-03] MEDS: HYDROmorphone PCA 10 MG/50 ML BAG IV PRN (13:58)
--- NOTE | 2022-07-03 18:46 | P.HPOB ---
History of Present Illness H&P Date: 07/03/22 Chief Complaint: Contractions and leaking of fluid This patient is a pleasant 36-year-old 3 para 1 female estimated date of confinement 07/13/2022 estimated gestational age 38-4/7 weeks who presented earlier this morning with complaints of leaking of fluid at 4:30. Patient had a positive amnio sure. has been uncomplicated. She did have a suboptimal cardiac views so I sent her for a level III ultrasound and they confirmed normal anatomy. Review of Systems Genitourinary: Reports Menstruation: Reports amenorrhea Past Medical History Past Medical History: No Reported History Additional Past Medical History / Comment(s): She had excision of a benign lip lesion. History of Any Multi-Drug Resistant Organisms: None Reported Past Surgical History: No Surgical Hx Reported Past Anesthesia/Blood Transfusion Reactions: No Reported Reaction Past Psychological History: Anxiety Smoking Status: Never smoker Past Alcohol Use History: None Reported Past Drug Use History: None Reported - Past Family History Father Family Medical History: No Reported History Medications and Allergies Home Medications Medication Instructions Recorded Confirmed Type Pnv,Calcium 72/Iron/Folic Acid 1 tab PO DAILY 04/12/18 07/03/22 History [ Plus Tablet] Allergies Allergy/AdvReac Type Severity Reaction Status Date / Time No Known Allergies Allergy Verified 07/03/22 09:23 Exam Vital Signs Temp Pulse Resp BP Pulse Ox 07/03/22 15:23 97.0 F L 62 16 154/86 100 07/03/22 14:53 67 16 144/88 100 07/03/22 14:23 64 16 146/76 100 07/03/22 14:08 58 L 18 159/72 100 07/03/22 13:53 58 L 18 142/76 100 07/03/22 13:38 67 18 154/70 100 07/03/22 13:23 98.3 F 72 16 128/78 100 07/03/22 10:40 97.5 F L 81 18 142/88 98 07/03/22 10:00 96.6 F L 90 18 132/90 100 Intake and Output 07/03/22 07/03/22 07/03/22 06:59 14:59 22:59 Intake Total 500 Output Total 1540 50 Balance -1040 -50 Intake: IV 500 Output: Urine 200 Estimated Blood Loss 800 Output, Quantitative 540 50 Blood Loss Other: Weight 79.379 kg - OBG Physical Exam Abdomen: bowel sounds normal, no diffuse tenderness, no bruit present, no guarding noted, no hepatomegaly, no splenomegaly, no mass Vagina: normal moisture, no discharge Cervix: no lesion (Cervix 5 cm dilated with gross rupture membranes), no discharge Uterus: enlarged (Fundal height 38 cm) Results blood work shows she is a positive, rubella immune, RPR nonreactive, hepatitis B negative, HIV is nonreactive, Glucola was normal, group B strep was negative, most recent ultrasounds at 7 lbs. 13 oz. Result Diagrams: 07/03/22 10:17 Abnormal Lab Results - Last 24 Hours (Table) 07/03/22 Range/Units 10:17 WBC 12.9 H (3.8-10.6) k/uL Neutrophils # (Manual) 10.97 H (1.3-7.7) k/uL Assessment and Plan Assessment: This is a pleasant 36-year-old 3 para 1 female 38-4/7 weeks gestation who is admitted with spontaneous rupture membranes, please note this H&P is dictated status post delivery. Patient had a rupture of her forebag and had a bradycardia, category 3 heart tones and required emergent . Please see dictated operative note. (1) 38 weeks gestation of Current Visit: Yes Status: Acute Code(s): Z3A.38 - 38 WEEKS GESTATION OF SNOMED Code(s): 88757600 (2) Non-reassuring electronic monitoring tracing Current Visit: Yes Status: Acute Code(s): O36.8390 - MATERN CARE FOR ABNLT FETL HRT RATE OR RHYM, UNSP TRI, UNSP SNOMED Code(s): 624379347 (3) Spontaneous rupture of amniotic membranes Current Visit: No Status: Acute Code(s): QSX9551 - SNOMED Code(s): 984884472
--- NOTE | 2022-07-03 18:54 | P.OP ---
Date of Procedure: 07/03/22 Preoperative Diagnosis: #1: 38-4/7 week intrauterine . #2: Category 3 heart tones, remote from delivery Postoperative Diagnosis: Same, nuchal cord and body cord Procedure(s) Performed: Emergent primary low transverse section Anesthesia: CRYSTAL Surgeon: José Luis Carter Crm Manager #1: Lisette Gaspar Estimated Blood Loss (ml): 800 Pathology: other (Placenta) Condition: stable Disposition: floor Indications for Procedure: Please see dictated H&P for intimate details of this patient's admission. Brief summary this pleasant 36-year-old 3 para 1 female 38-4/7 weeks gestation admitted to labor and delivery with spontaneous rupture membranes. Patient's 4- 5 cm dilated did have a fore bag at which time we ruptured for clear fluid. Soon thereafter patient had bradycardia to the 50s that did not resolve with position changes. Patient was rushed immediately to the back for section at that time heart tones are still in the 50s. I recommended we proceed with immediate delivery by emergent . Patient and her family understood the urgency and risks. All her questions are answered and written consent is obtained. Operative Findings: This was a viable male infant Apgars 9 and 10 delivery time was 1244 hrs. Infant had a nuchal cord tight 1 and a also a cord around the left shoulder. Description of Procedure: This patient has a Patrick catheter placed to straight drain. She's immediately taken to the operating room she is laid in the supine position. She has abdominal prep and drape. She subsequent undergoes rapid sequence general endotracheal anesthesia. With an adequate level of anesthesia a scalpel is taken Pfannenstiel skin incision is then made. A second scalpel is taken down the fascia the fascia scored with a knife. Fascia is extended bilaterally using the Cardona scissors. Fascia is dissected off the rectus muscles sharply. Rectus muscles are the peritoneum identified and entered sharply. Bladder blade is then placed. Scalpels and immediately taken to the lower uterine segment above the bladder and incision is made. Using a hemostat I into the uterine cavity bluntly. This incision is extended bluntly. The infants head is then delivered through the incision with fundal pressure. Mouth and nares are bulb suctioned. There is a tight nuchal cord which is reduced was also a cord around the left arm and shoulder. With fundal pressure the rest this 's body is delivered. There is a vigorous viable male Apgars are 9 and 10 delivery time was 1244 hrs. After delivery of the the umbilical cord is doubly clamped and cut. The placenta is then manually extracted intact. Uterus is then externalized and the uterine incision demarcated with Sellers clamps. Uterine incision closed in 0 Vicryl running locked fashion 2 layers. Excellent hemostasis is noted. The bladder peritoneum was then reapproximated using a 3-0 Vicryl. Excess fluid is removed from the abdomen and pelvis. The uterus, tubes, ovaries appear normal for term gestation. Uterus placed back into the abdomen. Parietal peritoneum was then closed in 0 Vicryl running fashion. Rectus muscles reapproximated using 0 Vicryl interrupted fashion. Fascial incision is then closed using 0 PDS running fashion. Fascial incision is intact and hemostatic. Subcutaneous tissues and closed using a 3-0 Vicryl. Skin is and closed using mamadou. At this time we do get an x-ray completed we did not have time to do a count prior to surgery and the x-ray is negative. Patient is awakened from anesthesia and taken to her birthing suite in satisfactory condition. There are no complications.
[2022-07-03] MEDS: KETOROLAC 15 MG/ML 1 ML VIAL IVP SCH (19:51)
--- NOTE | 2022-07-03 20:29 | P.MSEPDOC ---
Presenting Problems - Arrival Data Date of Arrival on Unit: 07/03/22 Time of Arrival on Unit: 10:00 Mode of Transport: Portable - Complaint OB-Reason for Admission/Chief Complaint: Rule Out SROM Comment: pt presents to triage for possible SROM this am at 0430, having some cramping and contractions, rating 3/10 Medical History - Information : 3 Para: 1 Term: 1 : 0 Abortions: Spontaneous or Elective: 1 Number of Living Children: 1 - Gestational Age Gestational Age by MATTHEW (wks/days): 38 Weeks and 4 Days Review of Systems - Review of Systems Constitutional: No problems Breast: No problems ENT: No problems Cardiovascular: No problems Respiratory: No problems Gastrointestinal: No problems Genitourinary: No problems Musculoskeletal: No problems Neurological: No problems Skin: No problems Vital Signs - Temperature Temperature: 97.0 F Temperature Source: Tympanic - Pulse Right Sitting Brachial Pulse Rate: 62 Pulse Assessment Method: Automatic Cuff - Respirations Respiratory Rate: 16 O2 Sat by Pulse Oximetry: 100 - Blood Pressure Right Arm Sitting Blood Pressure: 154/86 Blood Pressure Mean: 108 Blood Pressure Source: Automatic Cuff Medical Screen Scoring - Cervical Exam Dilation (cm): 3.5 Effacement (%): 70 Station: -2 Membranes: Ruptured - Uterine Contractions Intensity: Mild Resting: Soft to palpation - Assessment - Baby A Baseline FHR: 130 Heart Rate - NICHD Category: Category I (Normal) NST: Reactive Physician Notification - Physician Notified Physician Notified Date: 07/03/22 Physician Notified Time: 09:52 Physician: José Luis Carter New Order Received: Yes - Notification Comment Comment: amnisure positive, pt admitted for labor Maternal Triage Index - Stat/Priority 1 Stat Priority 1: No - Urgent/Priority 2 Urgent Priority 2: No - Prompt/Priority 3 Prompt Priority 3: Yes Criteria Met for Priority 3: pt presents to triage for possible SROM this am at 0430, having some cramping and contractions, rating 3/10 Disposition - Disposition OB Disposition: Admit, LDRP Suite I agree with the RN Medical Screening Exam: Yes Case reviewed; plan agreed upon as documented in EMR&OBIX.: Yes Diagnosis: ENCOUNTER FOR FULL-TERM UNCOMPLICATED DELIVERY
[2022-07-03] MEDS: LACTATED RINGERS 1,000 ML IV SCH ×2 (21:41→22:23)
[2022-07-03] MEDS: IBUPROFEN 600 MG TAB PO SCH (22:22)
[2022-07-03] MEDS: ACETAMINOPHEN TAB 500 MG TAB PO SCH (22:22)
[2022-07-03] MEDS: SENNOSIDES-DOCUSATE SODIUM 1 EACH TAB PO SCH (22:22)
[2022-07-04] MEDS: HYDROmorphone PCA 10 MG/50 ML BAG IV PRN (00:09)
[2022-07-04] MEDS: KETOROLAC 15 MG/ML 1 ML VIAL IVP SCH ×3 (02:16→20:45)
[2022-07-04] MEDS: IBUPROFEN 600 MG TAB PO SCH ×5 (02:21→23:19)
[2022-07-04] MEDS: ACETAMINOPHEN TAB 500 MG TAB PO SCH ×4 (06:17→23:56)
--- NOTE | 2022-07-04 06:55 | P.PNOBGPC ---
Subjective - Subjective Patient reports: Reports appetite normal, Reports voiding normally, Reports pain well controlled, Reports ambulating normally : doing well Objective - Vital Signs Latest vital signs: Vital Signs Temp Pulse Resp BP Pulse Ox 07/04/22 04:00 97.8 F 77 16 110/72 98 07/04/22 00:00 98.5 F 73 16 105/71 97 07/03/22 20:29 97.0 F L 62 16 154/86 100 07/03/22 20:00 98.4 F 85 16 135/77 97 07/03/22 15:23 97.0 F L 62 16 154/86 100 07/03/22 14:53 67 16 144/88 100 07/03/22 14:23 64 16 146/76 100 07/03/22 14:08 58 L 18 159/72 100 07/03/22 13:53 58 L 18 142/76 100 07/03/22 13:38 67 18 154/70 100 07/03/22 13:23 98.3 F 72 16 128/78 100 07/03/22 10:40 97.5 F L 81 18 142/88 98 07/03/22 10:00 96.6 F L 90 18 132/90 100 Intake and Output 07/03/22 07/03/22 07/04/22 14:59 22:59 06:59 Intake Total 500 Output Total 1540 800 900 Balance -1040 -800 -900 Intake: IV 500 Output: Urine 200 750 900 Uretheral (Patrick) 250 Estimated Blood Loss 800 Output, Quantitative 540 50 Blood Loss Other: # Voids 0 Weight 79.379 kg - Exam Lungs: bilateral: normal Chest: Normal S1, Normal S2 Extremities: Present: normal Abdomen: Present: normal appearance, soft. Absent: distention, tenderness Incision: Present: normal, dry, intact Uterus: Present: normal, firm - Labs Labs: Abnormal Lab Results - Last 24 Hours (Table) 07/03/22 Range/Units 10:17 WBC 12.9 H (3.8-10.6) k/uL Neutrophils # (Manual) 10.97 H (1.3-7.7) k/uL Assessment and Plan Assessment: Postoperative day #1. Patient is resting without complaints. Vital signs are stable and she is afebrile. Uterus is firm nontender and her incision is intact and dry. My impression this is a normal postoperative course. Plan is to advance diet, check CBC, and encourage ambulation. (1) 38 weeks gestation of Current Visit: Yes Status: Acute Code(s): Z3A.38 - 38 WEEKS GESTATION OF SNOMED Code(s): 83353247 (2) Non-reassuring electronic monitoring tracing Current Visit: Yes Status: Acute Code(s): O36.8390 - MATERN CARE FOR ABNLT FETL HRT RATE OR RHYM, UNSP TRI, UNSP SNOMED Code(s): 116223555 (3) Spontaneous rupture of amniotic membranes Current Visit: No Status: Acute Code(s): CRF9302 - SNOMED Code(s): 614575980
[2022-07-04 07:35] LABS: Basophils % (A) 0 %; Eosinophils # (A) 0.1 k/uL (0-0.7); Eosinophils % (A) 0 %; HCT 32.1 % (34.0-46.0); HGB 10.6 gm/dL (11.4-16.0); Lymphocytes # (A) 1.9 k/uL (1.0-4.8); Lymphocytes % (A) 14 %; MCH 28.7 pg (25.0-35.0); MCV 87.1 fL (80.0-100.0); Mean Platelet Volume 10.7; Monocytes # (A) 0.6 k/uL (0-1.0); Monocytes % (A) 4 %; Neutrophils # (A) 11.3 k/uL (1.3-7.7); Neutrophils % (A) 80 %; Platelet Count 173 k/uL (150-450); RBC 3.68 m/uL (3.80-5.40); RDW 13.6 % (11.5-15.5)
[2022-07-04] MEDS: SENNOSIDES-DOCUSATE SODIUM 1 EACH TAB PO SCH ×2 (08:11→20:05)
[2022-07-04 09:14] VITALS: RESP 14
[2022-07-04] MEDS: LACTATED RINGERS 1,000 ML IV SCH (20:46)
[2022-07-05] MEDS: ACETAMINOPHEN TAB 500 MG TAB PO SCH ×2 (01:57→08:58)
[2022-07-05] MEDS: IBUPROFEN 600 MG TAB PO SCH (05:59)
[2022-07-05 08:30] VITALS: BP 120/49; PULSE 85; TEMP 98.9
[2022-07-05] MEDS: SENNOSIDES-DOCUSATE SODIUM 1 EACH TAB PO SCH (08:58)
--- NOTE | 2022-07-05 12:05 | P.DS ---
Providers Date of admission: 07/03/22 09:45 Expected date of discharge: 07/05/22 Attending physician: José Luis Carter Primary care physician: Stated None Hospital Course: This is a 36 Ritter female 3 para 1 at 38-4/7 weeks who presented in active labor. She underwent an emergent primary section for distress and delivered a viable male infant with scores of 9 at 1 minute and 10 at 5 minutes and infant weight of 6 lbs. 15 oz. on 07/03/2022. Her postoperative and courses have been uncomplicated. Her bleeding has been minimal. Pain is fairly well controlled with ibuprofen and Tylenol along with occasional oxycodone. She does still complain of some intermittent pain on the left upper part of her incision. She is passing flatus and no bowel movement yet. Vital signs are stable. Abdomen is soft with positive bowel sounds 4. Incision is clean dry and intact with mamadou in place. Extremities show negative Homans. Impression is status post primary low transverse section postoperative day #2. Plan is to discharge home today. Routine postoperative and instructions are given. Prescriptions have already been sent to pharmacy per Dr. Carter. She has a breast pump. She is advised to follow up with Dr. Carter in approximately 1 week for postoperative check and in 6 weeks for check. She is advised to call the office if she has any further questions or concerns prior to her appointment time. Procedures: Primary low transverse section for delivery of a viable male on 07/03/2022 Patient Condition at Discharge: Stable Plan - Discharge Summary New Discharge Prescriptions: New oxyCODONE HCL [OxyIR] 5 mg PO Q4HR PRN #18 tab PRN Reason: Pain Ibuprofen [Motrin] 600 mg PO Q6H #30 tab No Action Pnv,Calcium 72/Iron/Folic Acid [ Plus Tablet] 1 tab PO DAILY Discharge Medication List Pnv,Calcium 72/Iron/Folic Acid [ Plus Tablet] 1 tab PO DAILY 04/12/18 [History] Ibuprofen [Motrin] 600 mg PO Q6H #30 tab 07/04/22 [Rx] oxyCODONE HCL [OxyIR] 5 mg PO Q4HR PRN #18 tab 07/04/22 [Rx] Follow up Appointment(s)/Referral(s): José Luis Carter MD [STAFF PHYSICIAN] - 1 Week (Please see me in 6 weeks as well for a check. PP 08/14/22 @9:30Am 1 week Appointment 07/11/22 @8:30) Patient Instructions/Handouts: (DC) Activity/Diet/Wound Care/Special Instructions: No heavy lifting or strenuous activity for 6 weeks. No intercourse or anything per vagina for 6 weeks. Please call if any fever, chills, excessive vaginal bleeding, and/or abdominal pain. Discharge Disposition: HOME SELF-CARE
== END 2022-07-05 12:30 | disposition home or self-care (01) | DRG 786 ==
LOC: FBPOP 09:08 → 4FBP 09:45
PROVIDERS: ADMIT Obstetrics & Gynecology; ATTEND Obstetrics & Gynecology
PROC: 4A0HXCZ Measurement of Products of Conception, Cardiac Rate, External Approach (ICD-10-PCS; 2022-07-03)
PROC: 10D00Z1 Extraction of Products of Conception, Low, Open Approach (ICD-10-PCS; principal; 2022-07-03 12:43)
DX: O76 Abnormality in fetal heart rate and rhythm complicating labor and delivery (principal); O60.14X0 Preterm labor third trimester with preterm delivery third trimester, not applicable or unspecified; F41.9 Anxiety disorder, unspecified; N85.2 Hypertrophy of uterus; O69.1XX0 Labor and delivery complicated by cord around neck, with compression, not applicable or unspecified; O34.03 Maternal care for unspecified congenital malformation of uterus, third trimester; O99.344 Other mental disorders complicating childbirth; Z37.0 Single live birth; Z3A.38 38 weeks gestation of pregnancy
CPT/HCPCS: 59025; 74018; 84112; 85025; 86850; 86900; 86901; 99213

== ENCOUNTER → 2023-08-24 | Outpatient (CLI) | payer BC ==
--- NOTE | 2023-08-24 09:30 | MM ---
Reason for Exam: Screening (asymptomatic). Patient History: Menarche at age 13. First Full-Term at age 31. Late child-bearing (after 30). Premenopausal. Maternal grandmother had breast cancer, age 65. Last menstrual period: 08/17/2023 Risk Values: Taya 5 year model risk: 0.5%. NCI Lifetime model risk: 13.8%. Tissue Density: The breast tissue is heterogeneously dense. This may lower the sensitivity of mammography. Findings: Analyzed By CAD. Asymmetry right breast on CC view middle/posterior depth measuring 9.0 cm from the nipple on lateral aspect. Additional asymmetries left breast on MLO view superior aspect 8-9 cm from the nipple. One of these look like a intrafissural lymph node. Overall Assessment: Incomplete: need additional imaging evaluation, BI-RAD 0 Management: Diagnostic Mammogram of both breasts. [facility] will attempt to contact patient to return for supplemental views and ultrasound if indicated. Patient should continue monthly self-breast exams. A clinical breast exam by your physician is recommended on an annual basis. This exam should not preclude additional follow-up of suspicious palpable abnormalities. Note on Taya scores and lifetime risk: 1. A Taya score greater than 3% is considered moderate risk. If this is the case, consider specialist referral to assess eligibility for a risk reducing agent. 2. If overall lifetime risk for the development of breast cancer is 20% or higher, the patient may qualify for future screening with alternating mammogram and breast MRI. Electronically signed and approved by: Guilherme Lacey DO
== END | disposition home or self-care (01) ==
LOC: RADMAMWWP 07:45
PROVIDERS: ATTEND Obstetrics & Gynecology
DX: Z12.31 Encounter for screening mammogram for malignant neoplasm of breast (principal); Z80.3 Family history of malignant neoplasm of breast
CPT/HCPCS: 77063; 77067

== ENCOUNTER → 2023-08-27 | Outpatient (CLI) | payer BC ==
--- NOTE | 2023-08-27 15:29 | MM ---
Reason for Exam: Additional evaluation requested from prior study. Last screening mammogram was performed less than 1 month ago. Patient History: Menarche at age 13. First Full-Term at age 31. Late child-bearing (after 30). Premenopausal. Maternal grandmother had breast cancer, age 65. Risk Values: Taya 5 year model risk: 0.5%. NCI Lifetime model risk: 13.8%. Prior Study Comparison: 08/24/2023 Bilateral MG 3D screening mammo w/cad, [facility]. Tissue Density: The breast tissue is heterogeneously dense. This may lower the sensitivity of mammography. Findings: Analyzed By CAD. Areas of concern compresses out on spot compression imaging. No new suspicious masses, calcifications or distortions. Overall Assessment: Benign, BI-RAD 2 Management: Screening Mammogram of both breasts in 1 year. Results were given to the patient verbally at the time of exam. Patient should continue monthly self-breast exams. A clinical breast exam by your physician is recommended on an annual basis. This exam should not preclude additional follow-up of suspicious palpable abnormalities. Note on Taya scores and lifetime risk: 1. A Taya score greater than 3% is considered moderate risk. If this is the case, consider specialist referral to assess eligibility for a risk reducing agent. 2. If overall lifetime risk for the development of breast cancer is 20% or higher, the patient may qualify for future screening with alternating mammogram and breast MRI. Electronically signed and approved by: Guilherme Lacey DO
== END | disposition home or self-care (01) ==
LOC: RADMAMWWP 14:07
PROVIDERS: ATTEND Obstetrics & Gynecology
DX: R92.333 Mammographic heterogeneous density, bilateral breasts (principal); Z80.3 Family history of malignant neoplasm of breast
CPT/HCPCS: 77062; 77066

== ENCOUNTER → 2024-09-06 | Outpatient (CLI) | payer BC ==
[2024-09-06 14:40] VITALS: BP 138/82; PULSE 67; RESP 17; TEMP 98.3
--- NOTE | 2024-09-06 15:33 | P.HPOB ---
History of Present Illness H&P Date: 09/06/24 Chief Complaint: The patient is here for her routine gynecologic exam. This is a 38-year-old -0-1-2 with an LMP of 08/16/2024. The patient is here to establish with this office. It has been about a year since her last pelvic exam. She previously saw Dr. Carter for her gynecologic care. She is without gynecologic complaints and is currently using oral contraception for control. is contemplating a vasectomy. She states they are done having kids. Review of Systems The patient's weight has been stable over the last year. She denies respiratory, cardiac, or G.I. problems. Past Medical History Additional Past Medical History / Comment(s): Ulcerative proctitis. 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 History of Any Multi-Drug Resistant Organisms: None Reported Past Surgical History: Section Additional Past Surgical History / Comment(s): 1 vaginal delivery followed by 1 section. Past Anesthesia/Blood Transfusion Reactions: No Reported Reaction Past Psychological History: Anxiety Smoking Status: Never smoker Past Alcohol Use History: Rare (5 drinks per year.) Past Drug Use History: None Reported Additional History: She has been since 2015. 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 Mother Family Medical History: Diabetes Mellitus, Thyroid Disorder Additional Family Medical History / Comment(s): Borderline diabetes. Hyperthyroidism. Maternal grandmother had breast cancer. Medications and Allergies Home Medications Medication Instructions Recorded Confirmed Type norethindrone-e.estradioL-iron 1 tab PO DAILY 09/06/24 09/06/24 History [June Fe 1.5 mg-30 Mcg Tablet] Allergies Allergy/AdvReac Type Severity Reaction Status Date / Time No Known Allergies Allergy Verified 09/06/24 14:37 Exam Vital Signs Temp Pulse Resp BP Pulse Ox 09/06/24 14:37 98.3 F 67 17 138/82 97 Intake and Output 09/06/24 09/06/24 09/06/24 06:59 14:59 22:59 Other: Weight 71.214 kg Height 5 feet 6 inches, weight 157 pounds, BMI 25.3. This is a well-developed well-nourished white female who is alert and oriented times 3 in no acute distress. HEENT: Within normal limits. NECK: Supple without mass or thyromegaly. CHEST AND LUNGS: Clear to auscultation. HEART: Regular rate and rhythm. BREASTS: Are without mass or discharge. AXILLARY EXAM: Negative for adenopathy. BACK: Negative for CVA tenderness. ABDOMEN: Soft, nontender, without palpable masses. PELVIC EXAM: Normal external genitalia. Cervix and vagina appear normal. There is a mild cervical ectropion which appears completely benign. There is no unusual discharge. There is no evidence of prolapse. The uterus is midposition, nongravid size and nontender. There are no palpable adnexal masses or tenderness. RECTAL EXAM: negative for mass or tenderness. EXTREMITIES: Nontender. IMPRESSION: 1. 38-year-old female doing well on oral contraception, with normal gynecologic exam. PLAN: 1. Pap smear cotest was performed. 2. Self breast awareness was discussed with the patient. We have also discussed symptoms associated with inflammatory breast cancer. 3. Patient had a baseline screening mammogram last year that did require a bilateral breast workup which was felt to be benign. Repeat mammogram was recommended in 1 year. The order slip was given to the patient for this. 4. Osteoporosis prevention was discussed. I have stressed the importance of adequate calcium, vitamin D and regular exercise. Recommended amounts of calcium and vitamin D were also discussed. 5. We have had a long discussion regarding oral contraception. We have discussed possible risks including an increased risk for blood clots. The risk for blood clots is still less than a woman's risk, but she should be aware of this and she understands that if she develops any blood clots such as clots in her leg or lung, that she should discontinue control pills. She also understands that she should not smoke and she should call if she has any symptoms of blood clots. Blood clot symptoms were reviewed with the patient. She understands these things and would like to continue control pills. She states her is contemplating vasectomy. If he does have a vasectomy, she was instructed to continue control pills until the effects vasectomy has been found to be effective. The electronic prescription for will be sent to [facility] in [place] for the upcoming year. 6. She was advised to return in one year for her annual well woman exam.
== END ==
LOC: WWCWWP 14:22
PROVIDERS: ATTEND Obstetrics & Gynecology
DX: Z01.419 Encounter for gynecological examination (general) (routine) without abnormal findings (principal); Z80.3 Family history of malignant neoplasm of breast